=== PATIENT | female | born 1965 | race Caucasian/White ===

== ENCOUNTER 2021-12-12 08:17 | Day surgery (SDC) | payer BC, SELFPAY ==
[2021-12-06 19:39] VITALS: BMI 33.9
--- NOTE | 2021-12-11 14:48 | P.CONAN_ITS ---
Documented by User: Olive Richardson NP 12/11/21 14:49 HPI - Anesthesia Eval Consult details Narrative: 56yo F for Upper Endoscopy [facility] Past Medical History Medical History Glaucoma Heart murmur HTN (hypertension) Iron deficiency anemia Surgical History Surgical History H/O reduction mammoplasty History of colonoscopy with polypectomy History of open reduction and internal fixation (ORIF) procedure Social History Social History Patient Tobacco Use Status: Never used Tobacco Use of substances other than those prescribed or required for medical reasons: No Are you DNR?: No Advance Directives: No Advance Directives Information Provided: Yes Advance Directives on File: No Recently lost weight without trying: No Nutrition Risks: No Nutritional Risk Meds Allergies Allergy/AdvReac Type Severity Reaction Status Date / Time No Known Allergies Allergy Verified 12/12/21 08:38 Home Medications Medication Instructions Recorded Confirmed Last Taken Type hydrochlorothiazide 25 mg tablet 25 mg PO DAILY 12/06/21 12/06/21 Unknown History losartan 100 mg tablet 100 mg PO DAILY 12/06/21 12/06/21 12/12/21 07:00 History timolol maleate 0.5 % eye drops 1 drp ophthalmic (eye) BID 12/06/21 12/06/21 Unknown History Exam Exam Date and Time: December 11, 2021 1448 Height,Weight and Vital Signs: Height 5 ft 5 in Weight 92.533 kg Assessment and Plan Assessment Anesthesia Assessment: Chart Reviewed Documented by User: Kathleen Larson MD 12/12/21 09:32 [facility] Active Problems Active Problems: Denies PANDA Past Medical History Medical History Glaucoma Heart murmur HTN (hypertension) Iron deficiency anemia Family History Family history of problems with anesthesia: No Surgical History Surgical History H/O reduction mammoplasty History of colonoscopy with polypectomy History of open reduction and internal fixation (ORIF) procedure History of Problems with Anesthesia: No Social History Social History Patient Tobacco Use Status: Never used Tobacco Use of substances other than those prescribed or required for medical reasons: No Are you DNR?: No Advance Directives: No Advance Directives Information Provided: Yes Advance Directives on File: No Recently lost weight without trying: No Nutrition Risks: No Nutritional Risk Meds Allergies Allergy/AdvReac Type Severity Reaction Status Date / Time No Known Allergies Allergy Verified 12/12/21 08:38 Home Medications Medication Instructions Recorded Confirmed Last Taken Type hydrochlorothiazide 25 mg tablet 25 mg PO DAILY 12/06/21 12/06/21 Unknown History losartan 100 mg tablet 100 mg PO DAILY 12/06/21 12/06/21 12/12/21 07:00 History timolol maleate 0.5 % eye drops 1 drp ophthalmic (eye) BID 12/06/21 12/06/21 Unknown History Exam Height,Weight and Vital Signs: Vital Signs Temp Pulse Resp BP Pulse Ox O2 Del Method 12/12/21 08:40 97.6 F 62 15 128/85 99 Room Air Height 5 ft 5 in Weight 92.533 kg Airway Mallampati Class: II TM Dist: >3cm Neck ROM: Full Partial: Lower Heart: RRR ?murmur Lungs: CTAB Assessment and Plan Assessment Anesthesia Assessment: Anesthesia Plan Discussed Final Anesthetic Review Family History of Problems with Anesthesia: No History of Problems with Anesthesia: No NPO: Yes ASA Class: II Final Preanesthetic Review: No Changes in Pt Med Stat, Meds/Allgs Chart Reviewed, Consent Obtained/Reviewed and Anes Risks/Benef Reviewed Patient Risk: Low Procedure Risk: Low Assessment/Block/Sedation in SS: Assess/Block/Sedation-SS Anesthetic Plan Anesthetic Plan: MAC: Disposition: Standard PACU
[2021-12-12 08:40] VITALS: BP 128/85; PULSE 62; RESP 15; TEMP 36.4; O2SAT 99
[2021-12-12] MEDS: Lactated Ringers 1,000 ML 100 ML IVCONT (08:52)
--- NOTE | 2021-12-12 09:39 | MHC.SHP ---
Pre-Procedural Eval Section A Date of Service: 12/12/21 Section B Chief Complaint: epigastric pain,reflux Details of Present Illness: see H&P no changes Relevant Family History (Specify if Yes): No Relevant Social History: None Present Medications: see Short Stay Collaborative assessment Medical History: No relevant PMH History of Previous Operations: No relevant previous surgery Allergies: Allergies Allergy/AdvReac Type Severity Reaction Status Date / Time No Known Allergies Allergy Verified 12/12/21 08:38 Review of Systems Sugical H&P ROS: Negative: Constitution, Cardiovascular, Respiratory, Neurological, Psychiatric, Hem-Onc, Allergic/Immunologic, Gastrointestinal, Genitourinary, Musculoskeletal, Integumentary, Endocrine and Eyes/Ears/Nose/Throat Exam Surgical H&P Exam: Normal: HEENT, Normal: Heart, Normal: Lungs, Normal: Extremities, Normal: Abdomen, Normal: Skin and Normal: Neurological Plan Diagnosis/Plan: Unchanged I have reviewed the history and physical and performed a pertinent physical examination on my patient. No changes have occurred unless specified.
--- NOTE | 2021-12-12 10:10 | PM.OP ---
Brief Operative Note Date of Service: 12/12/21 Pre-op diagnosis: gerd,epigastric pain Post-op diagnosis: same Procedure: EGD Surgeon: Yovani Pina Anesthesia: MAC Was an Waterworks Supervisor used for this Procedure?: No Estimated blood loss (mL): 4 Pathology: other Condition: stable Disposition: PACU
[2021-12-12 10:13] VITALS: BP 90/61; PULSE 74; RESP 16; TEMP 36.4; O2SAT 97
[2021-12-12 10:28] VITALS: BP 114/72; PULSE 67; RESP 16; O2SAT 98
--- NOTE | 2021-12-12 13:38 | OP_ITS ---
SURGEON: Yovani Pina MD INDICATIONS: Gastroesophageal reflux disease and epigastric pain. PREOPERATIVE DIAGNOSIS: POSTOPERATIVE DIAGNOSIS: PROCEDURE PERFORMED: Upper endoscopy with biopsy on 12/12/21. ESTIMATED BLOOD LOSS: COMPLICATIONS: ANESTHESIA: Monitored anesthesia care. ASSISTANTS: SPECIMENS: DESCRIPTION OF PROCEDURE: History and physical performed. The risks and benefits of the procedure were explained to the patient. Informed consent was obtained. The patient was placed in the left lateral decubitus position. The Olympus video gastroscope was introduced into the esophagus, stomach, and duodenum. Examination was performed. The scope was removed. She tolerated the procedure well and was returned to recovery area in stable condition. FINDINGS: Upper endoscopy: 1. Esophagus: The esophagus showed a mild distal esophagitis. There was a 2 cm sliding hiatal hernia. Biopsies were obtained from the EG junction. 2. Stomach: The stomach showed no evidence of masses, ulcers, or polyps. Antral biopsies were obtained to evaluate for H pylori. 3. Duodenum: The bulb and second portion were normal. IMPRESSION: 1. Hiatal hernia. 2. Esophagitis. RECOMMENDATION: Follow up the biopsy results. MD NEETA Zavala/TUAN / [id number] MTDD
== END 2021-12-12 11:18 | disposition home or self-care (01) ==
PROVIDERS: PCP Internal Medicine; Visit Provider Internal Medicine Gastroenterology
PROC: 0DJ08ZZ Inspection of Upper Intestinal Tract, Via Natural or Artificial Opening Endoscopic (ICD-10-PCS; CPT 43235; principal; 2021-12-12 09:40)
DX: K29.50 Unspecified chronic gastritis without bleeding (principal); B96.81 Helicobacter pylori [H. pylori] as the cause of diseases classified elsewhere; Z80.0 Family history of malignant neoplasm of digestive organs; K21.9 Gastro-esophageal reflux disease without esophagitis; K20.80 Other esophagitis without bleeding; K44.9 Diaphragmatic hernia without obstruction or gangrene; D50.9 Iron deficiency anemia, unspecified; E78.00 Pure hypercholesterolemia, unspecified; I10 Essential (primary) hypertension; R01.1 Cardiac murmur, unspecified; Z79.899 Other long term (current) drug therapy
CPT/HCPCS: 43239; 88305; 88342

== ENCOUNTER 2022-05-09 13:32 | Outpatient (REF) | payer BC, SELFPAY | END 2022-05-09 13:33 | disposition home or self-care (01) | LOC: HO.LNP 13:32 | PROVIDERS: Visit Provider Internal Medicine Gastroenterology | DX: A04.8 Other specified bacterial intestinal infections (principal) | CPT/HCPCS: 87338 ==

== ENCOUNTER 2023-08-27 08:19 | Outpatient (REF) | payer BC, SELFPAY ==
--- NOTE | ~2023-08-27 | US_ITS ---
EXAMINATION: US ABDOMEN COMPLETE CLINICAL INFORMATION: Elevated LFTs. COMPARISON: None available. TECHNIQUE: Real-time imaging of the abdominal viscera. FINDINGS: PANCREAS: Normal body, the head and tail are obscured by bowel gas. ABDOMINAL AORTA: The proximal, mid, and distal segments are normal in caliber. INFERIOR VENA CAVA: Visualized portions are normal. LIVER: The liver is normal in size. The liver contour is normal. Parenchymal echogenicity is normal. No focal hepatic lesion. Dilated intrahepatic bile ducts are noted. GALLBLADDER: Normal. The gallbladder is physiologically distended without evidence of stones, sludge, polyps, wall thickening or pericholecystic fluid. No sonographic Adler's sign. COMMON BILE DUCT: Proximal common bile duct measures 1.3 cm in diameter. This tapers smoothly down to 0.7 cm in its distal portion. RIGHT KIDNEY: Minimal hydronephrosis. No renal calculi or focal parenchymal lesions. The kidney measures 10.2 cm in maximum dimension. LEFT KIDNEY: Normal. No hydronephrosis. No renal calculi or focal parenchymal lesions. The kidney measures 10.3 cm in maximum dimension. SPLEEN: Normal. The spleen measures 8.1 cm in maximum dimension. FREE FLUID: None. US/US abdomen complete IMPRESSION: 1. Dilated proximal common bile duct and intrahepatic bile ducts. The distal common duct tapers smoothly to 0.7 cm in its distal portion. CT scan could be obtained for further evaluation. 2. Minimal right hydronephrosis. 3. Limited views of the pancreas.
== END 2023-08-27 08:20 | disposition home or self-care (01) ==
LOC: HO.US 08:19
PROVIDERS: PCP Internal Medicine; Visit Provider Internal Medicine
DX: R94.5 Abnormal results of liver function studies (principal)
CPT/HCPCS: 76700

== ENCOUNTER 2023-10-14 07:33 | Outpatient (REF) | payer BC, SELFPAY ==
[2023-10-14 09:02] LABS: Alanine Aminotransferase 41 U/L (0-31); Albumin Level 4.4 g/dL (3.5-5.0); Alkaline Phosphatase 65 U/L (39-117); Aspartate Amino Transferase 32 U/L (5-31); Bilirubin Direct 0.2 mg/dL (0.0-0.5); Bilirubin Total 0.7 mg/dL (0.0-1.0); Iron 105 mcg/dL (30-160); Percent Iron Saturation 37 % (15-50); Total Iron Binding Capacity 287 mcg/dL (228-428); Total Protein 7.2 g/dL (6.5-8.0); Unsaturated Iron Binding 182 ug/dL
[2023-10-14 09:13] LABS: HBS Num1 0.55 mIU/mL (0-7.99); HBc Num1 0.08 S/CO (0.00-0.79); HBsAGNum1 0.36 S/CO (0.00-0.99); Hepatitis B Core Antibody Nonreactive (Nonreactive); Hepatitis B Surface Antigen Negative (Negative); ~HepC Num1 0.08 S/CO (0.00-0.79); ~Hepatitis A Antibody IgM Nonreactive (Nonreactive); ~Hepatitis B Surface Antibody NONREACTIVE (Nonreactive); ~Hepatitis C Antibody Nonreactive (Nonreactive)
[2023-10-14 09:19] LABS: Ferritin 150 ng/mL (10-250)
[2023-10-16 13:07] LABS: Mitochondrial Antibodies NEGATIVE (NEGATIVE)
[2023-10-21 04:33] LABS: Smooth Muscle Antibody <20 U (<20)
[2023-10-22 09:18] LABS: Anti Nuclear Antibody Screen POSITIVE (NEGATIVE)
[2023-10-22 09:22] LABS: Anti Nuclear Antibody Pattern Nuclear, Homogeneous; Anti Nuclear Antibody Titer 1:40 titer
== END 2023-10-14 07:34 | disposition home or self-care (01) ==
LOC: HO.LAB 07:33
PROVIDERS: PCP Internal Medicine; Visit Provider Internal Medicine Gastroenterology
DX: R79.89 Other specified abnormal findings of blood chemistry (principal)
CPT/HCPCS: 36415; 80076; 82728; 83540; 86015; 86038; 86039; 86381; 86704; 86706; 86709; 86803; 87340

== ENCOUNTER 2023-10-23 07:57 | Outpatient (REF) | payer BC, SELFPAY ==
--- NOTE | ~2023-10-23 | MR_ITS ---
EXAMINATION: MR ABDOMEN WITHOUT AND WITH CONTRAST, MRCP CLINICAL INFORMATION: Elevated liver function tests, dilated common bile duct. COMPARISON: Abdominal ultrasound 08/27/2023. TECHNIQUE: MR abdomen was performed without and with use of 9 mL intravenous Gadavist gadolinium contrast. Postcontrast images are performed in multiphase dynamic sequences. Imaging was performed in 3 planes. 3D MRCP images were processed on an independent workstation under concurrent supervision. FINDINGS: LUNG BASES: The visualized lung bases are unremarkable. LIVER, GALLBLADDER, AND BILIARY TREE: The liver is normal in size, smooth in contour, and normal in signal. No focal hepatic lesion. The gallbladder is unremarkable with no evidence of gallbladder wall thickening, or obvious pericholecystic inflammatory changes. Redemonstration of extrahepatic biliary ductal dilatation with gradual, smooth tapering of the inferior two-thirds of the common bile duct and more abrupt luminal narrowing of the immediately periampullary CBD. No choledocholithiasis. The upper third of the CBD measures up to 1.1 cm in maximum diameter and the common hepatic duct measures up to 1.2 cm in diameter. There is mild central intrahepatic biliary ductal dilatation, for example the main left hepatic duct measures 0.7 cm and the main right hepatic lobe measures 0.9 cm. PANCREAS: There is a 0.5 cm T2 hyperintense cystic-appearing observation in the pancreatic head immediately adjacent and most likely communicating with the main duct (3:13 and 12:21). No high risk features are associated with this observation, specifically there is no enhancement on postcontrast images and there is no main duct dilatation. SPLEEN: Normal. ADRENAL GLANDS: Normal. KIDNEYS AND URETERS: The kidneys are normal in size, shape, and enhance symmetrically. No hydronephrosis. No perinephric stranding. GASTROINTESTINAL TRACT: No bowel obstruction. No ascites or fluid collection. ABDOMINAL WALL: No significant hernia is appreciated. LYMPH NODES: No lymphadenopathy. VASCULAR: Normal caliber of the abdominal aorta. The main portal vein and hepatic veins are patent. OSSEOUS STRUCTURES: No acute or aggressive appearing osseous findings. ADDITIONAL FINDINGS: Partially seen enlarged uterus with multiple, predominantly T2 hypointense masses largest located posteriorly measuring up to 7.8 cm (3:18). MR/MR abdomen wo/w con IMPRESSION: 1. Redemonstration of extrahepatic biliary ductal dilatation with gradual, smooth tapering of the inferior two thirds of the common bile duct and more abrupt narrowing in the periampullary CBD. These findings are indeterminate and could be related to volume averaging and ampullary sphincteric contraction. There is mild associated central intrahepatic biliary ductal dilatation. No evidence of choledocholithiasis. Further evaluation with ERCP as clinically warranted. 2. Subcentimeter cystic appearing observation in the pancreatic head immediately adjacent to the main pancreatic duct that could represent a small sidebranch IPMN or sequela of prior pancreatitis. Recommend follow-up with abdominal MRI pancreas protocol/MRCP in 12 months. 3. Partially seen enlarged uterus with multiple masses, statistically favored to represent fibroids. Further characterization could be obtained with pelvic ultrasound.
[2023-10-23] MEDS: gadobutroL 10 ML VIAL IVPUSH (09:02)
== END 2023-10-23 07:58 | disposition home or self-care (01) ==
LOC: HO.MRI 07:57
PROVIDERS: PCP Internal Medicine; Visit Provider Internal Medicine Gastroenterology
DX: R79.89 Other specified abnormal findings of blood chemistry (principal); K82.8 Other specified diseases of gallbladder
CPT/HCPCS: 74183; A9585

== ENCOUNTER 2024-09-09 14:36 | Outpatient (REF) | payer BC, SELFPAY ==
--- OUTSIDE RECORDS SUMMARY | 2023-10-23 04:12 | XMS_ITS ---
Author Organization [facility] Address [address] [place] [address] Care Team Providers Care Insurance Account Manager Name Role Phone Joselineazael Lynn Primary Care Provider Unavailab Yovani Rudolph Jr Unavailable REASON FOR VISIT labs Encounters Encounter Location Date Provider Diagnosis [facility] [address] [facility] [address] [place] [phone] 10/23/2023 Yovani Pina Jr Plan Of Treatment Next Appt Details Provider Name:Yovani flores Jr, 11/02/2024 09:40:00 AM, [address], [address], [place], [address], Progress Notes * JOAQUÍNIMANOB:1965 (58 yo F)Acc No.[id number]:10/23/2023 Patient: LALIT MORTON :1965 A ge:58 Y S ex:Female Address:[address] [place] [id number] * true * Date: Generated for Printi ng/Faxing/eTransmitting on: 0 09/09/2024 04:49 PM EDT
[2024-09-09 15:42] LABS: Alanine Aminotransferase 25 U/L (0-31); Albumin Level 4.4 g/dL (3.5-5.0); Alkaline Phosphatase 67 U/L (39-117); Anion Gap 9 (12-20); Aspartate Amino Transferase 28 U/L (5-31); Bilirubin Total 0.8 mg/dL (0.0-1.0); Blood Urea Nitrogen 12 mg/dL (9-16); Calcium 9.6 mg/dL (8.4-10.2); Carbon Dioxide 30 mmol/L (22-29); Chloride 108 mmol/L (96-108); Cholesterol 191 mg/dL (<200); Estimated Glomerular Filt Rate > 60; Glucose Random 86 mg/dL (60-115); HDL Cholesterol 87 mg/dL (>40); LDL Cholesterol Calculated 86 mg/dL (<100); Potassium 3.9 mmol/L (3.3-5.1); Sodium 143 mmol/L (135-145); Total Protein 7.2 g/dL (6.5-8.0); Triglycerides 90 mg/dL (<150)
== END 2024-09-09 14:37 | disposition home or self-care (01) ==
LOC: HO.LAB 14:36
PROVIDERS: PCP Internal Medicine; Visit Provider Internal Medicine
DX: E66.3 Overweight (principal)
CPT/HCPCS: 36415; 80053; 80061

== ENCOUNTER 2024-11-16 17:29 | Outpatient (REF) | payer BC, SELFPAY ==
--- OUTSIDE RECORDS SUMMARY | 2024-11-02 05:40 | XMS_ITS ---
Author Organization [facility] Address [address] [place] [phone] Care Team Providers Care Ice Cream Dipper Name Role Phone Lynn Da Silva Primary Care Provider Unavailab Yovani Rudolph Jr Unavailable [phone] REASON FOR VISIT Patient presents today for a PANCREATIC CYST Medications Medication SIG (Take, Route, Frequency, Duration) Notes Start Date End Date Status Minoxidil 2.5 MG 1 tablet Oral Once a day L668,Unavai lable Active Sulfamethoxazole-Trimethop rim 800-160 MG Oral for 30 Not-Taking amLODIPine-Atorvastatin 2.5-10 MG 1 tablet Orally Once a day Active Omeprazole 20 MG 1 capsule 1/2 to 1 hour before morning meal Orally Once a day Active Rosuvastatin Calcium 5 MG 1 tablet Orall y Once a day for 30 day(s) Active hydroCHLOROthiazide Not-Taking Losartan Potassium 100 MG TK 1 T PO D Orally Once a day Active Timolol Maleate 0.5 % INSTILL 1 DROP IN BOTH EYES TWICE DAILY Ophthalmic for 25 Active Social History AUDIT-C (Standard) Question Answer Notes Did you have a drink contain ing alcohol in the past year? Yes How often did you have a dri nk containing alcohol in the past year? Monthly or less (1 point) How many drinks did you have on a typical day when you were drinking in the past year? 1 or 2 drinks (0 point) How often did you have six o r more drinks on one occasion in the past year? Never (0 point) Points 1 Interpretation Negative Vital Signs Temperature 97.8 degrees Fahrenheit 11/03/19 25 Blood pressure systolic 001 mm Hg 11/03/19 25 Blood pressure diastolic 01 mm Hg 025 Heart Rate 88 /min 11/02/2024 Height 65 in 11/02/2024 Weight 204.8 lbs 11/02/2024 BMI 34.08 kg/m2 11/02/2024 Encounters Encounter Location Date Provider Diagnosis [facility] [address] [place] [address] 11/02/2024 Yovani Pina Jr Pancreatic cyst K86.2 Assessments Encounter Date Diagnosis (ICD Code) Assessment Notes Treatment Notes Treatment Clinical Notes Section Notes 11/02/2024 Pancreatic cyst (ICD-10 - K86.2) Plan Of Treatment Pending Test Test Name Order Date MRI ABD W&WO CONTRAST 11/02/2024 Next Appt Details Provider Name:Yovani flores Jr, 12/29/2024 10:00:00 AM, [address] [place] [address], [phone], Progress Notes * IMAN YANESOB:1965 (59 yo F)Acc No.[id number]:11/02/2024 Progress Notes Patient: LALIT MORTON Provider: Jonathan Pina MD :1965 A ge:59 Y S ex:Female Date:11/02/2024 Address:[address] [place] [address] Pcp:Lynn Da Silva Subjective: * Chief Complaints: * 1 . Patient presents today for a PANCREATIC CYST. * Medical History: C olonoscopy, 06/03/19 , history of tubular adenoma, hyperplastic polyps, five-year followup, Heart murmur, mild valvular heart disease, TR/DC, Iron deficiency anemia, Microscopic hematuria, Hyperlipidemia, Hypertension, Gastroesophageal reflux disease, EGD 12/12/21, H. pylori infection, OAC x2 weeks, now diet controlled., Alopecia areata, Low vitamin D, Elevated BMI. * Surgical History: L eft ankle fracture , Reduction mammoplasty . * Hospitalization/Major Diagno stic Procedure: D enies Past Hospitalization. * Family History: F ather: , diagnosed with HTN (hypertension). M other: , colon cancer, diagnosed with Colon cancer. M aternal Grand Mother: , colon cancer, diagnosed with Colon cancer. Patients mother of colon cancer. * Social History: T obacco Use: T obacco Use/Smoking A re you a: nonsmoker. D rugs/Alcohol: A lcohol Screen P oints: 3, Interpretation: Positive. M iscellaneous: M arital status: single. Occupation: post office. D rug/Alcohol: A BUTCH-C (Standard) D id you have a drink containing alcohol in the past year? Y es,?How often did you have a drink containing alcohol in the past year? M onthly or less (1 point), H ow many drinks did you have on a typical day when you were drinking in the past year? 1 or 2 drinks (0 point), H ow often did you have six or more drinks on one occasion in the past year? N ever (0 point), P oints 1 , I nterpretation N egative. * Medications: T aking Omeprazole 20 MG Capsule Delayed Release 1 capsule 1/2 to 1 hour before morning meal Orally Once a day , Taking amLODIPine-Atorvastatin 2.5-10 MG Tablet 1 tablet Orally Once a day , Taking Rosuvastatin Calcium 5 MG Tablet 1 tablet Orally Once a day , Taking Losartan Potassium 100 MG Tablet TK 1 T PO D Orally Once a day , Taking Timolol Maleate 0.5 % Solution INSTILL 1 DROP IN BOTH EYES TWICE DAILY Ophthalmic , Taking Minoxidil 2.5 MG Tablet 1 tablet Oral Once a day , Notes to Pharmacist: L668,Unavailable, Not-Taking/PRN hydroCHLOROthiazide , Not-Taking/PRN Sulfamethoxazole-Trimethoprim 800-160 MG Tablet Oral , Medication List reviewed and reconciled with the patient Objective: * Vitals: W t:204.8lbs, Ht: 65 in, BMI:34.08Index, BP:001/01mm Hg, HR:88/min, Temp:97.8, Wt- k.9. Assessment: * Assessment: 1. P ancreatic cyst - K86.2 (Primary) Plan: * Treatment: * * Preventive Medicine: Counseling: C are goal follow-up plan: A carley Normal BMI Follow-up G iving encouragement to exercise. Urinary Incontinence: U rinary Incontinence A ssessment: A bsent. Screenings: F all Risk Screening F all Risk Assessment: N o falls in the past year, S creening: N o falls in the past year, A ssessment: P erformed. * * The named appointment provid er may or may not be the originator of this progress note, and it is not deemed complete until electronically signed by the appointment provider. Sign off status: Pending * Provider: Jonathan Pina MD Date: 11/02/2024 Generated for Taj bateman/Dieudonne/Kristian on: 11/16/2024 06:17 PM EDT
--- NOTE | ~2024-11-16 | MR_ITS ---
EXAMINATION: MR ABDOMEN WITHOUT THEN WITH IV CONTRAST HISTORY: PANCREATIC CYST COMPARISON: Comparison is made with the prior examination dated 10/23/2023. TECHNIQUE: Axial in and out of phase T1-weighted gradient echo, axial diffusion weighted, and axial and coronal HASTE T2 with fat saturation images were obtained through the abdomen. Subsequently, fat suppressed axial and coronal T1-weighted images were obtained after the intravenous administration of 9 mL Gadavist. FINDINGS: Liver: There is no loss of signal intensity in the liver on opposed phase imaging to suggest steatosis. There is no enhancing liver mass. The hepatic and portal veins are patent. There is no intrahepatic biliary dilatation. Gallbladder/biliary tree: No gallstones are identified. The common bile duct measures up to 11 mm in caliber without change. There is smooth tapering of the common bile duct in the pancreatic head. No intraluminal filling defects are identified to suggest choledocholithiasis. Spleen: The spleen is unremarkable. Pancreas: Again seen is a tiny 3 mm T2 hyperintense focus in the pancreatic head/uncinate process without associated enhancement. There is no enhancing pancreatic mass. The pancreatic duct is normal in caliber. Adrenals: The adrenal glands are unremarkable. Kidneys: The kidneys are unremarkable. There is no hydronephrosis. Lymph nodes: There is no retroperitoneal lymphadenopathy in the upper abdomen. Fluid: There is no ascites in the upper abdomen. Visualized bowel: The visualized small and large bowel loops are unremarkable in appearance. Visualized bones: The visualized bones demonstrate normal marrow signal intensity. MR/MR abdomen wo/w con IMPRESSION: 1. Stable tiny 3 mm T2 hyperintense focus in the pancreatic head/uncinate process. Continued follow-up is recommended with MRI in 12 months. 2. Mild dilatation of the common bile duct without change. No evidence of choledocholithiasis or a mass. Electronically signed by: José Miguel Dorman MD 11/17/2024 07:17 AM EDT
--- OUTSIDE RECORDS SUMMARY | 2024-11-16 18:17 | XMS_ITS | Patient Health Record ---
Author Organization [facility] Address [address] [place] [phone] Care Team Providers Care Display Coordinator Name Role Phone Lynn Da Silva Primary Care Provider Unavailab Yovani Rudolph Jr Unavailable Allergies No Known Allergies Reason For Referral No Information Medications Medication SIG (Take, Route, Frequency, Duration) Notes Start Date End Date Status hydroCHLOROthiazide Not-Taking Losartan Potassium 100 MG TK 1 T PO D Orally Once a day Active Minoxidil 2.5 MG 1 tablet Oral Once a day L668,Unavai lable Active Timolol Maleate 0.5 % INSTILL 1 DROP IN BOTH EYES TWICE DAILY Ophthalmic for 25 Active Sulfamethoxazole-Trimethop rim 800-160 MG Oral for 30 Not-Taking amLODIPine-Atorvastatin 2.5-10 MG 1 tablet Orally Once a day Active Omeprazole 20 MG 1 capsule 1/2 to 1 hour before morning meal Orally Once a day Active Rosuvastatin Calcium 5 MG 1 tablet Orall y Once a day for 30 day(s) Active Immunizations Vaccine Route Administration Date Status Comme nts Influenza Unknown 02/14/2021 Administered Influenza Unknown 01/04/2022 Administered Social History AUDIT-C (Standard) Question Answer Notes [...] Never (0 point) Points 1 Interpretation Negative Problems Problem Type SNOMED Code ICD Code Onset Dates Problem Status W/U Status Risk Notes Problem 563918137 Colon cancer screening (Z12.11) Active confirmed Problem 241751972 Dilated bile eligio t (K83.8) Active confirmed Problem 94661945 Epigastric pain (R10.13) Active confirmed Problem 646267105 Encounter for ot her preprocedural examination (Z01.818) Active confirmed Problem 058368982 Elevated liver function tests (R79.89) Active confirmed Problem 217880873 Gastroesophageal reflux disease without esophagitis (K21.9) Active confirmed Problem 919075978 H. pylori infect ion (A04.8) Active confirmed Problem Gastro-esophage al reflux disease with esophagitis (902439704) Gastroesophageal reflux disease with esophagitis, unspecified whether hemorrhage (K21.00) Active confirmed Vital Signs Heart Rate 88 /min 11/02/2024 Temperature 97.8 degrees Fahrenheit 11/02/2024 Blood pressure diastolic 01 mm Hg 11/02/2024 Height 65 in 11/02/2024 Blood pressure systolic 001 mm Hg 11/02/2024 Weight 204.8 lbs 11/02/2024 BMI 34.08 kg/m2 11/02/2024 Encounters Encounter Location Date Provider Diagnosis [facility] [address] [place] [phone] 11/02/2024 Yovani Pina Jr Pancreatic cyst K86.2 [facility] [address] [place] [phone] 03/04/[address] [facility] [address] [place] [phone] 11/05/2024 Yovani Pina Jr Colon cancer screening Z12.11 and History of adenomatous polyp of colon Z86.0101 Assessments Encounter Date Diagnosis (ICD Code) Assessment Notes Treatment Notes Treatment Clinical Notes Section Notes 11/02/2024 Pancreatic cyst (ICD-10 - K86.2) 11/05/2024 Colon cancer screening (ICD-10 - Z12.11) 11/05/2024 History of adenomatous polyp of colon (ICD-10 - Z86.0101) Plan Of Treatment Pending Test Test Name Order Date LIVER PROFILE 10/30/2023 LIVER PROFILE 10/10/2023 IRON + IBC (FE) 10/10/2023 FERRITIN 10/10/2023 HEPATITIS A,B,C PROFILE 10/10/2023 MITOCHONDRIAL AB 10/10/2023 SMOOTH MUSCLE ANTIBODIES 10/10/2023 H PYLORI AG, STOOL 04/30/2022 MRI ABD W&WO CONTRAST 11/02/2024 MRI ABD W&WO CONTRAST 10/03/2023 FLUOR. ANTINUCLEAR AB SCREEN (MARY) 09/22 Liver Fibrosis Pnl 10/30/2023 Future Test Test Name Order Date COLONOSCOPY 04/15/2013 COLONOSCOPY 03/05/2019 UPPER GI ENDOSCOPY 10/23/2021 COLONOSCOPY 11/11/2024 Next Appt Details Provider Name:Yovani flores , 12/29/2024 10:00:00 AM, [address] [place] [address] , [place], [place], [phone], Insurance Providers Payer Name Payer Address Payer Phone Subscriber Number Group Number Insured Name Patient Relationship to Insured Coverage Start Date Coverage End Date [facility] [address] [place], [place] [id number] LALIT YANES Self - patient is the insured Medical (General) History Medical History History ICD Code Colonoscopy, 06/03/19 , histo ry of tubular adenoma, hyperplastic polyps, five-year followup Heart murmur, mild valvular heart diseas e, TR/ID Iron deficiency anemia Microscopic hematuria Hyperlipidemia Hypertension Gastroesophageal reflux dise ase, EGD 12/12/21, H. pylori infection, OAC x2 weeks, now diet controlled. Alopecia areata Low vitamin D Elevated BMI Surgical History Surgery Date(Month/Year) Reduction mammoplasty Left ankle fracture
--- OUTSIDE RECORDS SUMMARY | 2024-11-16 18:18 | XMS_ITS | Clinical Summary ---
Author Organization [address] Address [address] [place] [address] Phone Care Team Providers Care Accounting Associate Name Role Phone Lynn Da Silva MD Primary Care Provider [phone] Surgical History Surgery Date Site/Laterality Comments RI BREAST REDUCTION 03/25/2003 - 03/24/2004 Bilateral Family History Medical History Relation Name Comments Breast cancer Mother's Sister Relation Name Status Comments Mother's Sister Alive Social History Tobacco Use Types Packs/Day Years Used Date Smoking Tobacco: Never Assessed Comments No Sex and Gender Information Value Date Recorded Sex Assigned at Not on file Legal Sex Female 4:02 AM EST Gender Identity Not on file Sexual Orientation Not on file Obstetrics History Last Filed Vital Signs Vital Sign Reading Time Taken Comments Blood Pressure - - Pulse - - Temperature - - Respiratory Rate - - Oxygen Saturation - - Inhaled Oxygen Concentration - - Weight 90.7 kg (200 lb) 04/01/2024 7:37 AM EST Height 162.6 cm (5' 4 ) 04/01/2024 7:37 AM EST Body Mass Index 34.33 04/01/2024 7:37 AM EST Plan of Treatment Health Maintenance Due Date Last Done Comments DTaP,Tdap,and Td Vaccines (1 - Tdap) 1982 Cervical Cancer Screening: Pap Smear 1984 Pneumococcal Vaccine: 50+ Years (1 of 1 - PCV) 2013 Colorectal Cancer Screening: Colonoscopy 02/25/2022 HIV Screening 02/25/2022 Hepatitis C Screening 02/25/2022 Social Influencers of Health Screening 02/25/2022 COVID-19 Vaccine ( season) 2023 02/18/2022, 05/22/2021, 02/27/2021, Additional history exists Depression Screening 03/25/2024 Influenza Vaccine (#1) 2024 02/18/2022, 2020 Hypertension/CHF/CAD Annual BMP Blood Test 02/16/2025 02/17/2024 Breast Cancer Screening 04/01/2026 04/01/19, 07/05/2022, 06/04/2021, Additional history exists Cholesterol Screening (Lipid Panel) 02/16/2029 02/17/2024 RSV Immunization Adult Patients (1 - 1-dose 75+ series) 2038 Zoster Vaccines Completed 06/30/2021, 04/26, 04/30/2021 HIB Vaccines Aged Out No longer eligi ble based on patient's age to complete this topic HPV Vaccines Aged Out No longer eligi ble based on patient's age to complete this topic Hepatitis A Vaccines Aged Out No long er eligible based on patient's age to complete this topic Hepatitis B Vaccines Aged Out No long er eligible based on patient's age to complete this topic IPV Vaccines Aged Out No longer eligi ble based on patient's age to complete this topic MMR Vaccines Aged Out No longer eligi ble based on patient's age to complete this topic Meningococcal ACWY Vaccine Aged Out N o longer eligible based on patient's age to complete this topic Meningococcal B Vaccine Aged Out No l onger eligible based on patient's age to complete this topic RSV Immunization Patients Under 20 months Aged Out No longer eligible based on patient's age to complete this topic Varicella Vaccines Aged Out No longer eligible based on patient's age to complete this topic Procedures Procedure Name Priority Date/Time Associated Diagnosis Comments MG MAMMO DIGITAL SCREENING W LUPILLO BILAT Routine 04/01/2024 7:47 AM EST Encounter for screening mammogram for breast cancer COMPREHENSIVE METABOLIC PANEL Routine 02/17/2024 9:46 AM EST Hypertension, unspecified type Pure hypercholesterolemia Nonspecific elevation of levels of transaminase or lactic acid dehydrogenase (LDH) Body mass index 33.0-33.9, adult LIPID PANEL WITH REFLEX TO DIRECT LDL Routine 02/17/2024 9:46 AM EST Hypertension, unspecified type Pure hypercholesterolemia Nonspecific elevation of levels of transaminase or lactic acid dehydrogenase (LDH) Body mass index 33.0-33.9, adult from Last 3 Months or Most Recently Relevant to Health Maintenance Results * MG Mammo Digital Screening w Lupillo bilat (04/01/2024 7:47 AM EST) Anatomical Region Laterality Modality Breast Bilateral Mammography 04/01/2024 9:58 AM EST Impressions 04/01/2024 10:04 AM EST No mammographic evidence of malignancy. No suspicious interval change. A negative mammogram in the presence of a clinically suspicious palpable abnormality does not preclude the possibility of malignancy or alter the indications for biopsy. ASSESSMENT: BI-RADS 2: BENIGN RECOMMENDATION(S): 1: Routine screening mammogram BILATERAL in 1 year. -------- FINAL REPORT -------- Dictated By: Fransisco Gonsalez Dictated Date: 04/01/2024 09:58 ET Assigned Physician: Fransisco Gonsalez Reviewed and Electronically Signed By: Fransisco Gonsalez Signed Date: 04/01/2024 10:04 ET Workstation ID: [id number] Transcribed By: Self Edit Transcribed Date: 04/01/2024 09:58 ET Narrative 04/01/2024 10:04 AM EST EXAM: SCREENING MAMMOGRAPHY, BILATERAL HISTORY: SCREENING. Maternal aunt with history of breast cancer. Breast reduction surgery 2003 COMPARISON: 07/02/2022, 06/03/2021, 05/30/2020 TECHNIQUE: Synthesized CC and MLO projections of each breast. Tomosynthesis of each breast in the CC and MLO projections. ADDITIONAL IMAGING: None Computer-aided detection was employed with the iCAD [employer] AI 3-D. TISSUE DENSITY: There are scattered areas of fibroglandular density. (BI-RADS category B) FINDINGS: RIGHT BREAST: There is distortion consistent with previous reduction surgery. There are stable equal density focal asymmetries. LEFT BREAST: There is distortion consistent with previous reduction surgery. There are stable equal density focal asymmetries. Procedure Note Fransisco Gonsalez MD - 04/01/2024 EXAM: SCREENING MAMMOGRAPHY, BILATERAL HISTORY: SCREENING. Maternal aunt with history of breast cancer. Breast reduction surgery 2003 COMPARISON: 07/02/2022, 06/03/2021, 05/30/2020 TECHNIQUE: Synthesized CC and MLO projections of each breast.Tomosynthesis of each breast in the CC and MLO projections. ADDITIONAL IMAGING: None Computer-aided detection was employed with the iCAD profound AI 3-D. TISSUE DENSITY: There are scattered areas of fibroglandular density.(BI-RADS category B) FINDINGS: RIGHT BREAST: There is distortion consistent with previous reduction surgery. There arestable equal density focal asymmetries. LEFT BREAST: There is distortion consistent with previous reduction surgery. There arestable equal density focal asymmetries. IMPRESSION: No mammographic evidence of malignancy. No suspicious interval change. A negative mammogram in the presence of a clinically suspicious palpableabnormality does not preclude the possibility of malignancy or alter theindications for biopsy. ASSESSMENT: BI-RADS 2: BENIGN RECOMMENDATION(S): 1: Routine screening mammogram BILATERAL in 1 year. -------- FINAL REPORT -------- Dictated By: Fransisco Gonsalez Dictated Date: 04/01/2024 09:58 ET Assigned Physician: Fransisco Gonsalez Reviewed and Electronically Signed By: Fransisco Gonsalez Signed Date: 04/01/2024 10:04 ET Workstation ID: [id number] Transcribed By: Self Edit Transcribed Date: 04/01/2024 09:58 ET us Self Referral Sppl IMG BI PROCEDURES Final Resul t * (ABNORMAL) Lipid panel with reflex to direct LDL (02/17/2024 9:46 AM EST) Cholesterol 221(H) 0 - 200 mg/dL LAB CHEMISTRY METHOD 02/17/2024 5:59 PM EST [facility] Triglycerides 71 0 - 150 mg/dL LAB CHEMISTRY METHOD 02/17/2024 5:59 PM EST [facility] HDL 121 >=40 mg/dL LAB CHEMISTRY METHOD 02/17/2024 5:59 PM EST [facility] Comment:Results verified by repeat testing LDL Calculated 86 0 - 100 mg/dL LAB CHEMISTRY METHOD 02/17/2024 5:59 PM [facility] VLDL Cholesterol Miky 14.2 mg/dL LAB CHEMISTRY METHOD 02/17/2024 5:59 PM [facility] Non HDL Chol. (LDL+VLDL) 100 <145 mg/dL LAB CHEMISTRY METHOD 02/17/2024 5:59 PM [facility] Chol/HDL Ratio 1.8 0.0 - 4.4 LAB CHEMISTRY METHOD 02/17/2024 5:59 PM [facility] Blood Venous blood specimen / Unknown Venipuncture / Unknown 02/17/2024 9:46 AM EST 02/17/2024 9:46 AM EST us Lynn Da Silva MD LAB BLOOD ORDERABLES Final Re sult [facility] [address] [place] [address], * Comprehensive metabolic panel (02/17/2024 9:46 AM EST) Sodium 139 133 - 145 mmol/L LAB CHEMISTRY METHOD 02/17/2024 5:39 PM [facility] Potassium 4.5 3.5 - 5.5 mmol/L LAB CHEMISTRY METHOD 02/17/2024 5:39 PM [facility] Chloride 105 96 - 110 mmol/L LAB CHEMISTRY METHOD 02/17/2024 5:39 PM [facility] CO2 28 21 - 32 mmol/L LAB CHEMISTRY METHOD 02/17/2024 5:39 PM [facility] Anion Gap 6 3 - 11 LAB CHEMISTRY METHOD 02/17/2024 5:39 PM [facility] Glucose 93 70 - 100 mg/dL LAB CHEMISTRY METHOD 02/17/2024 5:39 PM [facility] BUN 15 5 - 25 mg/dL LAB CHEMISTRY METHOD 02/17/2024 5:39 PM EST [facility] Creatinine 0.99 0.50 - 1.10 mg/dL LAB CHEMISTRY METHOD 02/17/2024 5:39 PM [facility] eGFR 65 >=60 mL/min/1. 73m2 LAB CHEMISTRY METHOD 02/17/2024 5:39 PM [facility] Comment:Calculation based on the Chronic Kidney Disease Epidemiology Collaboration (CKD-EPI) equation refit without adjustment for race. BUN/Creatinine Ratio 15.2 LAB CHEMISTRY METHOD 02/17/2024 5:39 PM [facility] Calcium 9.7 8.5 - 10.5 mg/dL LAB CHEMISTRY METHOD 02/17/2024 5:39 PM [facility] AST (SGOT) 24 10 - 42 unit/L LAB CHEMISTRY METHOD 02/17/2024 5:39 PM [facility] ALT (SGPT) 32 10 - 60 unit/L LAB CHEMISTRY METHOD 02/17/2024 5:39 PM [facility] Alkaline Phosphatase 77 42 - 121 unit/L LAB CHEMISTRY METHOD 02/17/2024 5:39 PM [facility] Total Protein 7.1 6.0 - 8.0 g/dL LAB CHEMISTRY METHOD 02/17/2024 5:39 PM [facility] Albumin 3.9 3.2 - 5.0 g/dL LAB CHEMISTRY METHOD 02/17/2024 5:39 PM [facility] Total Bilirubin 0.9 0.0 - 1.4 mg/dL LAB CHEMISTRY METHOD 02/17/2024 5:39 PM [facility] Blood Venous blood specimen / Unknown Venipuncture / Unknown 02/17/2024 9:46 AM EST 02/17/2024 9:46 AM EST us Lynn Da Silva MD LAB BLOOD ORDERABLES Final Re sult [facility] [address] [place] [address], from Last 3 Months or Most Recently Relevant to Health Maintenance Insurance [employer] Care Teams Accounting Associate Relationship Specialty Start Date End Date Lynn Da Silva MD [address] [place] [address] [place] [address] PCP - General Internal Medicine 02/17/24
== END 2024-11-16 17:30 | disposition home or self-care (01) ==
LOC: HO.MRI 17:29
PROVIDERS: PCP Internal Medicine; Visit Provider Internal Medicine Gastroenterology
DX: K86.2 Cyst of pancreas (principal)
CPT/HCPCS: 74183; A9585

== ENCOUNTER → 2024-11-16 17:38 | Outpatient (BNV) | payer BC, SELFPAY | PROVIDERS: PCP Internal Medicine; Visit Provider Radiology Diagnostic Radiology | DX: K86.2 Cyst of pancreas (principal) | CPT/HCPCS: 74183 ==

== ENCOUNTER 2024-12-29 06:56 | Day surgery (SDC) | payer BC, SELFPAY ==
--- OUTSIDE RECORDS SUMMARY | 2024-12-10 16:24 | XMS_ITS | Clinical Summary ---
Author Organization [address] Address [address] [place] [address] Phone Care Team Providers Care Inspector Penetrant Name Role Phone Lynn Da Silva MD Primary Care Provider [phone] Surgical History Surgery Date Site/Laterality Comments [place] BREAST REDUCTION 03/25/2003 - 03/24/2004 Bilateral Family [...] 02/25/2022 Social Influencers of Health Screening 02/25/2022 Depression Screening 03/25/2024 COVID-19 Vaccine ( season) 2024 02/18/2022, 05/22/2021, 02/27/2021, Additional history exists Influenza Vaccine (#1) 2024 02/18/2022, 2020 Hypertension/CHF/CAD [...] Signed Date: 04/01/2024 10:04 ET Workstation ID: [id number] Transcribed By: Self Edit Transcribed Date: 04/01/2024 [...] Computer-aided detection was employed with the iCAD [employer] AI 3-D. TISSUE DENSITY: There are scattered [...] Signed Date: 04/01/2024 10:04 ET Workstation ID: [id number] Transcribed By: Self Edit Transcribed Date: 04/01/2024 09:58 ET us Self Referral Sppl IMG BI PROCEDURES Final Resul t * (ABNORMAL) Lipid panel with reflex to direct LDL (02/17/2024 9:46 AM EST) Cholesterol 221(H) 0 - 200 mg/dL LAB CHEMISTRY METHOD 02/17/2024 5:59 PM EST [facility] Triglycerides 71 0 - 150 mg/dL LAB CHEMISTRY METHOD 02/17/2024 5:59 PM EST [facility] HDL 121 >=40 mg/dL LAB CHEMISTRY METHOD 02/17/2024 5:59 PM EST [facility] Comment:Results verified by repeat testing LDL Calculated 86 0 - 100 mg/dL LAB CHEMISTRY METHOD 02/17/2024 5:59 PM [facility] VLDL Cholesterol Miky 14.2 mg/dL LAB CHEMISTRY METHOD 02/17/2024 5:59 PM [facility] Non HDL Chol. (LDL+VLDL) 100 <145 mg/dL LAB CHEMISTRY METHOD 02/17/2024 5:59 PM [facility] Chol/HDL Ratio 1.8 0.0 - 4.4 LAB CHEMISTRY METHOD 02/17/2024 5:59 PM [facility] Blood Venous blood specimen / Unknown Venipuncture / Unknown 02/17/2024 9:46 AM EST 02/17/2024 9:46 AM EST us Lynn Da Silva MD LAB BLOOD ORDERABLES Final Re sult [facility] [address] [place] [address], * Comprehensive metabolic panel (02/17/2024 9:46 AM EST) Sodium 139 133 - 145 mmol/L LAB CHEMISTRY METHOD 02/17/2024 5:39 PM [facility] Potassium 4.5 3.5 - 5.5 mmol/L LAB CHEMISTRY METHOD 02/17/2024 5:39 PM [facility] Chloride 105 96 - 110 mmol/L LAB CHEMISTRY METHOD 02/17/2024 5:39 PM [facility] CO2 28 21 - 32 mmol/L LAB CHEMISTRY METHOD 02/17/2024 5:39 PM [facility] Anion Gap 6 3 - 11 LAB CHEMISTRY METHOD 02/17/2024 5:39 PM [facility] Glucose 93 70 - 100 mg/dL LAB CHEMISTRY METHOD 02/17/2024 5:39 PM [facility] BUN 15 5 - 25 mg/dL LAB CHEMISTRY METHOD 02/17/2024 5:39 PM EST [facility] Creatinine 0.99 0.50 - 1.10 mg/dL LAB CHEMISTRY METHOD 02/17/2024 5:39 PM [facility] eGFR 65 >=60 mL/min/1. 73m2 LAB CHEMISTRY METHOD 02/17/2024 5:39 PM [facility] Comment:Calculation based on the Chronic Kidney Disease Epidemiology Collaboration (CKD-EPI) equation refit without adjustment for race. BUN/Creatinine Ratio 15.2 LAB CHEMISTRY METHOD 02/17/2024 5:39 PM [facility] Calcium 9.7 8.5 - 10.5 mg/dL LAB CHEMISTRY METHOD 02/17/2024 5:39 PM [facility] AST (SGOT) 24 10 - 42 unit/L LAB CHEMISTRY METHOD 02/17/2024 5:39 PM [facility] ALT (SGPT) 32 10 - 60 unit/L LAB CHEMISTRY METHOD 02/17/2024 5:39 PM [facility] Alkaline Phosphatase 77 42 - 121 unit/L LAB CHEMISTRY METHOD 02/17/2024 5:39 PM [facility] Total Protein 7.1 6.0 - 8.0 g/dL LAB CHEMISTRY METHOD 02/17/2024 5:39 PM [facility] Albumin 3.9 3.2 - 5.0 g/dL LAB CHEMISTRY METHOD 02/17/2024 5:39 PM [facility] Total Bilirubin 0.9 0.0 - 1.4 mg/dL LAB CHEMISTRY METHOD 02/17/2024 5:39 PM [facility] Blood Venous blood specimen / Unknown Venipuncture / Unknown 02/17/2024 9:46 AM EST 02/17/2024 9:46 AM EST us Lynn DaS ilva MD LAB BLOOD ORDERABLES Final Re sult [facility] [address] [place] [address], from Last 3 Months or Most Recently Relevant to Health Maintenance Insurance [facility] Care Teams Inspector Penetrant Relationship Specialty Start Date End Date Lynn Da Silva MD [address] [place] [address] [place] [address] PCP - General Internal Medicine 02/17/24
[2024-12-25 12:40] VITALS: BMI 34.0
--- NOTE | 2024-12-25 13:18 | HO.ANESPROP2 ---
Documented by User: Bess Taveras NP 12/25/24 13:19 HPI - Anesthesia Eval Consult details Narrative: 59 yr old female for colonoscopy PMFSH Past Medical History Medical History Elevated liver function tests Pancreatic cyst Iron deficiency anemia Glaucoma Heart murmur HTN (hypertension) Family History Family history of problems with anesthesia: No Surgical History Surgical History H/O reduction mammoplasty History of open reduction and internal fixation (ORIF) procedure History of colonoscopy with polypectomy History of Problems with Anesthesia: No Social History Social History Patient Tobacco Use Status: Never used Tobacco Have you been hit, kicked, punched, or otherwise hurt by someone within the past year? If so, by whom?: No Are you DNR?: No Advance Directives: No Advance Directives Information Provided: Yes Meds Allergies Allergy/AdvReac Type Severity Reaction Status Date / Time No Known Allergies Allergy Verified 12/12/21 08:38 Home Medications ?Medication ?Instructions ?Recorded ?Confirmed ?Last Taken ?Type timolol maleate 0.5 % eye drops 1 drp ophthalmic (eye) BID 12/06/21 12/25/24 12/28/24 History amlodipine 2.5 mg tablet 2.5 mg PO DAILY 12/25/24 12/25/24 12/29/24 History losartan 100 mg tablet 100 mg PO DAILY 12/25/24 12/25/24 12/28/24 History minoxidil 2.5 mg tablet 2.5 mg PO DAILY alopecia 12/25/24 12/25/24 12/28/24 History omeprazole 20 mg capsule,delayed 20 mg PO DAILY 12/25/24 12/25/24 12/29/24 History release rosuvastatin 5 mg tablet 5 mg PO DAILY 12/25/24 12/25/24 12/28/24 History Exam Height,Weight and Vital Signs: Height 5 ft 5 in Weight 92.76 kg Assessment and Plan Final Anesthetic Review Family History of Problems with Anesthesia: No History of Problems with Anesthesia: No Documented by User: Shelly Healy MD 12/29/24 08:14 PMFSH Past Medical History Medical History Elevated liver function tests Pancreatic cyst Iron deficiency anemia Glaucoma Heart murmur HTN (hypertension) Surgical History Surgical History H/O reduction mammoplasty History of open reduction and internal fixation (ORIF) procedure History of colonoscopy with polypectomy Social History Social History Patient Tobacco Use Status: Never used Tobacco Have you been hit, kicked, punched, or otherwise hurt by someone within the past year? If so, by whom?: No Are you DNR?: No Advance Directives: No Advance Directives Information Provided: Yes Meds Allergies Allergy/AdvReac Type Severity Reaction Status Date / Time No Known Allergies Allergy Verified 12/12/21 08:38 Home Medications ?Medication ?Instructions ?Recorded ?Confirmed ?Last Taken ?Type timolol maleate 0.5 % eye drops 1 drp ophthalmic (eye) BID 12/06/21 12/25/24 12/28/24 History amlodipine 2.5 mg tablet 2.5 mg PO DAILY 12/25/24 12/25/24 12/29/24 History losartan 100 mg tablet 100 mg PO DAILY 12/25/24 12/25/24 12/28/24 History minoxidil 2.5 mg tablet 2.5 mg PO DAILY alopecia 12/25/24 12/25/24 12/28/24 History omeprazole 20 mg capsule,delayed 20 mg PO DAILY 12/25/24 12/25/24 12/29/24 History release rosuvastatin 5 mg tablet 5 mg PO DAILY 12/25/24 12/25/24 12/28/24 History Exam Airway Mallampati Class: II TM Dist: >3cm Neck ROM: Full Heart: rrr Lungs: cta Assessment and Plan Assessment Anesthesia Assessment: Anesthesia Plan Discussed and Chart Reviewed Final Anesthetic Review NPO: Yes ASA Class: II Final Preanesthetic Review: No Changes in Pt Med Stat, Meds/Allgs Chart Reviewed, Consent Obtained/Reviewed and Anes Risks/Benef Reviewed Patient Risk: Low Procedure Risk: Low Anesthetic Plan Anesthetic Plan: MAC: Disposition: Standard PACU
[2024-12-29 07:48] VITALS: BP 128/81; PULSE 62; RESP 20; TEMP 36.9; O2SAT 99; BMI 34.6
[2024-12-29] MEDS: Lactated Ringers 1,000 ML 100 ML IVCONT (08:01)
--- NOTE | 2024-12-29 09:03 | MHC.SHP ---
Pre-Procedural Eval Section A - 24 Hr Update-Section A only Date of Service: 12/29/24 Section B - Complete if H&P > 30 days Chief Complaint: screening,hx adenomatous colon polyps Details of Present Illness: see H*P no changes Relevant Family History (Specify if Yes): No Relevant Social History: None Present Medications: see Short Stay Collaborative assessment Medical History: No relevant PMH History of Previous Operations: No relevant previous surgery Allergies: Allergies Allergy/AdvReac Type Severity Reaction Status Date / Time No Known Allergies Allergy Verified 12/12/21 08:38 Review of Systems Sugical H&P ROS: Negative: Constitution, Cardiovascular, Respiratory, Neurological, Psychiatric, Hem-Onc, Allergic/Immunologic, Gastrointestinal, Genitourinary, Musculoskeletal, Integumentary, Endocrine and Eyes/Ears/Nose/Throat Exam Surgical H&P Exam: Normal: HEENT, Normal: Heart, Normal: Lungs, Normal: Extremities, Normal: Abdomen, Normal: Skin and Normal: Neurological Plan Diagnosis/Plan: Unchanged I have reviewed the history and physical and performed a pertinent physical examination on my patient. No changes have occurred unless specified. Time Spent With Patient Time: Total time managing care of this patient today ____ minutes.
[2024-12-29 09:44] VITALS: BP 113/70; PULSE 66; RESP 12; TEMP 36.5; O2SAT 100
[2024-12-29 09:59] VITALS: BP 130/78; PULSE 70; RESP 16; TEMP 36.4; O2SAT 100
--- NOTE | 2024-12-29 10:18 | OP_ITS ---
DATE OF SERVICE: 12/29/2024 SURGEON: Yovani Pina MD INDICATIONS: Colon cancer screening and prior history of adenomatous colon polyps PREOPERATIVE DIAGNOSIS: POSTOPERATIVE DIAGNOSIS: PROCEDURE PERFORMED: Colonoscopy to the terminal ileum with biopsy. ESTIMATED BLOOD LOSS: COMPLICATIONS: ANESTHESIA: Monitored anesthesia care. ASSISTANTS: SPECIMENS: DESCRIPTION OF PROCEDURE: A history and physical was performed. The risks and benefits of the procedure were explained to the patient, and informed consent was obtained. The patient was placed in the left lateral decubitus position. A digital rectal examination was performed and was found to be normal. The Olympus pediatric video colonoscope was introduced into the rectum and advanced to the cecum. The cecum was identified by transillumination, palpation, and identification of ileocecal valve. Examination was performed. The scope was removed. She tolerated the procedure well and was returned to the recovery area in stable condition. FINDINGS: The terminal ileum was examined and appeared normal. The visualized colonic mucosa was within normal limits without evidence of masses or ulcers. A single polyp was identified in the cecum at the level of the ileocecal valve. This was removed with a biopsy forceps. No other polyps were identified. The quality of the prep was good. Retroflexed examination showed small internal hemorrhoids. There was some mild sigmoid diverticulosis. IMPRESSION: Colon polyp. RECOMMENDATION: Follow up the biopsy results. MD NEETA Zavala/IRAL / [id number]
== END 2024-12-29 11:05 | disposition home or self-care (01) ==
PROVIDERS: PCP Internal Medicine; Visit Provider Internal Medicine Gastroenterology
PROC: 0DJD8ZZ Inspection of Lower Intestinal Tract, Via Natural or Artificial Opening Endoscopic (ICD-10-PCS; CPT 45378; principal; 2024-12-29 09:10)
DX: Z12.11 Encounter for screening for malignant neoplasm of colon (principal); Z86.0101 Personal history of adenomatous and serrated colon polyps; K86.2 Cyst of pancreas; K21.00 Gastro-esophageal reflux disease with esophagitis, without bleeding; I10 Essential (primary) hypertension; D12.0 Benign neoplasm of cecum; Z80.0 Family history of malignant neoplasm of digestive organs; Z86.19 Personal history of other infectious and parasitic diseases
CPT/HCPCS: 45380; 88305; J2003; J2704